=== PATIENT | female | born 1990 | race Caucasian/White ===

== ENCOUNTER 2017-12-21 20:57 | Emergency (ER) | payer OTHER ==
[~2017-12-21] VITALS: Ht 160 cm; Wt 68.2 kg
[2017-12-21 21:04] VITALS: TEMP 36.6; Ht 160 cm; Wt 68.2 kg
[2017-12-21] MEDS ORDERED: SODIUM CHLORIDE 0.9% 1000ML 1,000 ML IV STA (21:24)
[2017-12-21] MEDS ORDERED: KETOROLAC TROMETHAMINE 30 MG/ML VIAL IV STA (21:24)
[2017-12-21] MEDS ORDERED: SODIUM CHLORIDE 0.9% 1000ML 1,000 ML IV ONE (21:24)
[2017-12-21] MEDS ORDERED: ACET-1256 PO (21:57)
[2017-12-21 22:07] LABS: BASO % 1.4 %; EOS % 2.2 %; EOS ABS # 0.16 K/uL (0-0.5); HEMATOCRIT 40.7 % (37-47); HEMOGLOBIN 13.9 g/dL (12.0-16.0); IG# 0.02 K/uL (0.00-0.02); LYMPH % 36.4 %; LYMPH ABS # 2.68 K/uL (1.2-3.4); MEAN CELL VOLUME 78.7 fL (80-100); MEAN CORPUSCULAR HEMOGLOBIN 26.9 pg (25-34); MEAN CORPUSCULAR HGB CONC 34.2 g/dl (32-36); MEAN PLATELET VOLUME 9.7 fL (7.4-10.4); MONO ABS # 0.88 K/uL (0.11-0.59); NEUT % 47.7 %; NEUT ABS # 3.52 K/uL (1.4-6.5); PLATELET COUNT 205 K/uL (130-400); RED CELL DISTRIBUTION WIDTH CV 12.2 % (11.5-14.5); RED CELL DISTRIBUTION WIDTH SD 35.2 fL (36.4-46.3); WHITE BLOOD COUNT 7.36 K/uL (4.8-10.8)
[2017-12-21 22:25] LABS: CALCIUM 8.7 mg/dl (8.5-10.1); CREATININE 0.87 mg/dl (0.60-1.20); POTASSIUM 3.7 mmol/L (3.5-5.1)
--- NOTE | 2017-12-21 22:25 | EMERGENCY ROOM VISIT NOTE ---
History Report prepared by [place]on: Nell Moser Under the Supervision of: Dr. Dillan Lujan M.D. First contact with patient: 21:15 Chief Complaint: GI ASSESSMENT Stated Complaint: POSSIBLE TRAVEL BUG/ FOOD POISIONING Nursing Triage Summary: see triage note History of Present Illness The patient is a 27 year old female who presents to the Emergency Room with complaints of persistent diarrhea starting 5 days ago. The patient was in [place] for 1 week and returned home 5 days ago. She has been having watery and "explosive" diarrhea since then. She is having worsening lower abdominal pain. She has an intermittent sharp abdominal pain. She has had headaches and fatigue since returning. She is nauseous. She was feeling feverish at first, but not in the past few days. She currently does not have a headache. She denies any chest pain, SOB, or vomiting. She has a history of migraines. She denies any chance of . She denies any previous surgeries besides wisdom teeth. She denies any history of GI problems or C diff. She denies recent antibiotic use. Source of History: patient Onset: 5 days ago Position: abdomen Quality: other (diarrhea) Timing: other (persistent) Associated Symptoms: + headache, + nausea, + abdominal pain, + fatigue, No chest pain, No SOB, No vomiting Review of Systems See HPI for pertinent positives & negatives. A total of 10 systems reviewed and were otherwise negative. Past Medical & Surgical Medical Problems: (1) No Known Active Medical Problems Old medical records were reviewed. Nurse's notes were reviewed and I agree with. Family History No pertinent family history stated. Social History Smoking Status: Never Smoker Marital Status: in relationship Occupation Status: employed Current/Historical Medications Scheduled Ciprofloxacin Hcl (Cipro), 500 MG PO BID Scheduled PRN Acetaminophen (Tylenol), 1,000 MG PO Q6 PRN for Headache or Pain Allergies Coded Allergies: No Known Allergies (Unverified , 12/21/17) Physical Exam Vital Signs Date Time Temp Pulse Resp B/P (MAP) Pulse Ox O2 Delivery O2 Flow Rate FiO2 12/21/17 21:04 36.6 107 18 134/79 95 Room Air Physical Exam General: Non-ill appearing, nontoxic young female in no acute distress. HEENT: Normal cephalic atraumatic. Pupils are equal round and reactive to light. Extraocular movements are intact. Oropharynx is pink with moist mucous membranes. No swelling of the mouth lips or tongue. Neck: Supple with a midline trachea. No meningeal signs or stiffness, no JVD or bruits. No Stridor. Chest: Clear to auscultation bilaterally. No wheezes or rhonchi. No increased work of breathing. Heart: regular rate and rhythm. Abdomen: Soft, minimal tenderness in the lower abdomen bilaterally, nondistended without rebound guarding or rigidity. Extremities: No cyanosis clubbing or edema. No calf tenderness or assymetry Spine/Back. Non tender to palpation. No CVA tenderness Skin: Good turgor without rashes. Neurologic exam: Cranial nerves two through 12 are intact. Motor and sensation are intact and symmetrical throughout. Medical Decision & Procedures Laboratory Results 12/21/17 21:40 Red Blood Count 5.17, Mean Corpuscular Volume 78.7, Mean Corpuscular Hemoglobin 26.9, Mean Corpuscular Hemoglobin Concent 34.2, Mean Platelet Volume 9.7, Neutrophils (%) (Auto) 47.7, Lymphocytes (%) (Auto) 36.4, Monocytes (%) (Auto) 12.0, Eosinophils (%) (Auto) 2.2, Basophils (%) (Auto) 1.4, Neutrophils # (Auto ) 3.52, Lymphocytes # (Auto) 2.68, Monocytes # (Auto) 0.88, Eosinophils # (Auto ) 0.16, Basophils # (Auto) 0.10 12/21/17 21:40 Test 12/21/17 21:40 White Blood Count 7.36 K/uL (4.8-10.8) Red Blood Count 5.17 M/uL (4.2-5.4) Hemoglobin 13.9 g/dL (12.0-16.0) Hematocrit 40.7 % (37-47) Mean Corpuscular Volume 78.7 fL (80-100) Mean Corpuscular Hemoglobin 26.9 pg (25-34) Mean Corpuscular Hemoglobin Concent 34.2 g/dl (32-36) Platelet Count 205 K/uL (130-400) Mean Platelet Volume 9.7 fL (7.4-10.4) Neutrophils (%) (Auto) 47.7 % Lymphocytes (%) (Auto) 36.4 % Monocytes (%) (Auto) 12.0 % Eosinophils (%) (Auto) 2.2 % Basophils (%) (Auto) 1.4 % Neutrophils # (Auto) 3.52 K/uL (1.4-6.5) Lymphocytes # (Auto) 2.68 K/uL (1.2-3.4) Monocytes # (Auto) 0.88 K/uL (0.11-0.59) Eosinophils # (Auto) 0.16 K/uL (0-0.5) Basophils # (Auto) 0.10 K/uL (0-0.2) RDW Standard Deviation 35.2 fL (36.4-46.3) RDW Coefficient of Variation 12.2 % (11.5-14.5) Immature Granulocyte % (Auto) 0.3 % Immature Granulocyte # (Auto) 0.02 K/uL (0.00-0.02) Anion Gap 3.0 mmol/L (3-11) Est Creatinine Clear Calc Drug Dose 91.6 ml/min Estimated GFR () 107.3 Estimated GFR (Non- 92.6 BUN/Creatinine Ratio 12.8 (10-20) Calcium Level 8.7 mg/dl (8.5-10.1) Human Chorionic Gonadotropin, Qual NEG (NEG) Laboratory studies as stated above per my review. Medications Administered Medications (Trade) Dose Ordered Sig/Mandi Route Start Time Stop Time Status Last Admin Dose Admin Sodium Chloride 1,000 ml @ 999 mls/hr Q1H1M STAT IV 12/21/17 21:24 12/21/17 22:24 DC 12/21/17 21:48 999 MLS/HR Sodium Chloride 1,000 ml @ 150 mls/hr Q6H40M ONCE IV 12/21/17 21:24 12/22/17 04:03 12/21/17 21:50 150 MLS/HR Ketorolac Tromethamine (Toradol Inj) 30 mg NOW STAT IV 12/21/17 21:24 12/21/17 21:26 DC 12/21/17 21:49 30 MG ED Course 2115: Past medical records reviewed. The patient was evaluated in room B10, and a complete history and physical examination were performed. 2123: Toradol Inj 30 mg IV, Sodium Chloride 1000 ml @ 150 mls/hr IV, Sodium Chloride 1000 ml @ 999 mls/hr IV. 2205: I reevaluated the patient. She is resting comfortably. Medical Decision Differentials include, but are not limited to; traveler's diarrhea, foodborne illness, infection, electrolyte or metabolic abnormality. This patient comes in after having crampy diarrhea after getting back from [place] this is been going on for almost a week. She has had some nausea. She looks well on exam and has minimal tenderness and no peritonitis. she is stable vital signs. Blood work was obtained and she has a normal white count. She has no significant electrolyte or metabolic abnormalities. Stool studies are ordered. She is concerned she could have cyclosporine as she researched on online. I think this is 1 of many potential etiologies. At his point she does have traveler's diarrhea and I discussed the options with her she should continue drink plenty of fluids use Imodium. I discussed the risk and benefits of giving her antibiotics. She would like to try the antibiotics I think this is reasonable given her symptoms. She was unable to give a stool sample here. I gave her Cipro 500 mg p.o. as well as a prescription for the next 3 days. I also gave her a prescription to come back and drop off for stool studies if the symptoms persist. I also recommend she follow-up with her regular doctor on Sunday if not better return to the ER over the weekend if increasing pain, fever chills, worsening symptoms, any new problems or concerns. She is happy the plan and discharged to home. Medication Reconcilliation Current Medication List: was personally reviewed by me Blood Pressure Screening Patient's blood pressure: Elevated blood pressure Blood pressure disposition: Elevated BP felt to be situational Impression Primary Impression: Traveler's diarrhea Scribe Attestation The scribe's documentation has been prepared under my direction and personally reviewed by me in its entirety. I confirm that the note above accurately reflects all work, treatment, procedures, and medical decision making performed by me. Departure Information Prescriptions Ciprofloxacin Hcl (CIPRO) 500 Mg Tab 500 MG PO BID, #5 TAB Prov: Dillan Lujan M.D. 12/21/17 Referrals No Doctor, Assigned (PCP) Patient Instructions My [facility]
[2017-12-21] MEDS ORDERED: CIPROFLOXACIN 500 MG TAB PO STA (23:32)
[2017-12-21] MEDS ORDERED: CIPR-255 PO (23:35)
[2017-12-21 23:46] VITALS: BP 116/66; PULSE 66; O2SAT 96
== END 2017-12-21 23:52 | disposition home or self-care (01) ==
LOC: C.EDB 21:00
DX: R19.7 Diarrhea, unspecified (principal)